=== PATIENT | male | born 1970 | race Caucasian/White ===

== ENCOUNTER 2020-11-15 11:33 | Inpatient (IN) | payer OTHER ==
[~2020-11-15 11:33] MED LIST: FLOMAX 0.4 MG0.4 MG PO; NORCO 7.5-3251 EACH PO; PERCOCET 5-3251 EACH PO
[2020-11-15 12:03] LABS: BASOPHIL 0.8 % (0-2); EOSINOPHIL 0 % (0-5); HCT 44.6 % (42.0-52.0); HGB 15.6 g/dl (13.2-18.0); LYMPHOCYTE 22.5 % (15-48); MCH 30.9 pg (25.0-31.0); MCV 88.3 fL (78.0-100.0); MONOCYTE 11.6 % (0-12); MPV 10.2 fL (6.0-9.5); NEUTROPHIL 64.6 % (41-80); NRBC 0; PLT 151 K/uL (150-400); RBC 5.05 M/uL (4.70-6.00); RDW 11.9 % (11.5-14.0); WBC 3.9 K/uL (4.0-10.5)
[2020-11-15 12:14] LABS: BUN/CREAT RATIO (CALC) 26.3 RATIO; CREATININE 0.76 mg/dL (0.67-1.17); POTASSIUM 3.8 mmol/L (3.5-5.1)
[2020-11-16 05:12] LABS: BASOPHIL 0 % (0-2); EOSINOPHIL 0 % (0-5); HCT 39.6 % (42.0-52.0); LYMPHOCYTE 24.5 % (15-48); MCHC 35.4 g/dL (32.0-36.0); MCV 87.6 fL (78.0-100.0); MONOCYTE 12.5 % (0-12); MPV 9.8 fL (6.0-9.5); NRBC 0; PLT 168 K/uL (150-400); RBC 4.52 M/uL (4.70-6.00); RDW 11.9 % (11.5-14.0); WBC 2.7 K/uL (4.0-10.5)
[2020-11-16 05:34] LABS: CREATININE 0.58 mg/dL (0.67-1.17); MAGNESIUM 1.8 mg/dL (1.8-2.4); POTASSIUM 3.9 mmol/L (3.5-5.1)
--- NOTE | 2020-11-16 13:14 | NUR ---
REPORTS SHE LIVES ALONE; PLEASE ADVISE OF ANY D/C NEEDS
[2020-11-17 04:08] LABS: BASOPHIL 0.1 % (0-2); EOSINOPHIL 0 % (0-5); HCT 39.1 % (42.0-52.0); HGB 13.4 g/dl (13.2-18.0); LYMPHOCYTE 7.6 % (15-48); MCH 30.8 pg (25.0-31.0); MCHC 34.3 g/dL (32.0-36.0); MCV 89.9 fL (78.0-100.0); MONOCYTE 7.3 % (0-12); MPV 9.9 fL (6.0-9.5); NEUTROPHIL 84.4 % (41-80); NRBC 0; PLT 172 K/uL (150-400); RBC 4.35 M/uL (4.70-6.00)
[2020-11-17 04:12] LABS: WBC 6.8 K/uL (4.0-10.5)
[2020-11-17 04:23] LABS: BUN/CREAT RATIO (CALC) 28.3 RATIO; CREATININE 0.6 mg/dL (0.67-1.17); POTASSIUM 3.8 mmol/L (3.5-5.1)
[2020-11-17] MEDS ORDERED: VENTOLIN HFA IN18 GM INH ×2 (13:51→13:58)
[2020-11-17] MEDS ORDERED: DECADRON6 MG PO ×2 (13:51→13:58)
[2020-11-17] MEDS ORDERED: DULERA 200 MCG8.8 GM INH (13:57)
[2020-11-18 04:44] LABS: BASOPHIL 0.2 % (0-2); EOSINOPHIL 0 % (0-5); HCT 40.9 % (42.0-52.0); HGB 13.8 g/dl (13.2-18.0); LYMPHOCYTE 8.5 % (15-48); MCH 30.4 pg (25.0-31.0); MCHC 33.7 g/dL (32.0-36.0); MCV 90.1 fL (78.0-100.0); MONOCYTE 5.2 % (0-12); MPV 9.9 fL (6.0-9.5); NEUTROPHIL 85.4 % (41-80); NRBC 0; PLT 207 K/uL (150-400); RBC 4.54 M/uL (4.70-6.00); RDW 11.9 % (11.5-14.0); WBC 6.1 K/uL (4.0-10.5)
[2020-11-18 05:21] LABS: BUN/CREAT RATIO (CALC) 22.2 RATIO; CREATININE 0.63 mg/dL (0.67-1.17); POTASSIUM 3.4 mmol/L (3.5-5.1)
--- NOTE | 2020-11-20 11:19 | NUR ---
LATE NOTE: DISCHARGE INSTRUCTIONS GIVEN TO PATIENT VERBALIZED UNDERSTANDING. IV DCD. DONALDS CALLED ABOUT OXYGEN WILL GET IN TOUCH WITH PATIENT. FAMILY MET AT DOOR
== END 2020-11-18 18:46 | disposition home or self-care (01) | DRG 871 ==
LOC: FER 11:33 → FMS 13:32
PROVIDERS: Emergency Medicine; ADMIT Internal Medicine
PROC: 8E0ZXY6 Isolation (ICD-10-PCS; principal; 2020-11-15)
PROC: XW033E5 Introduction of Remdesivir Anti-infective into Peripheral Vein, Percutaneous Approach, New Technology Group 5 (ICD-10-PCS; 2020-11-15)
DX: A41.89 Other specified sepsis (principal); U07.1 COVID-19; J12.82 Pneumonia due to coronavirus disease 2019; J96.01 Acute respiratory failure with hypoxia; Z82.49 Family history of ischemic heart disease and other diseases of the circulatory system
CPT/HCPCS: 36415; 36600; 71045; 80048; 82803; 83605; 83735; 85025; 94640; 94667; 94668; C9399; J0456; J0696; J1100; J1200; J1650; J1885; J7030; J7050